=== PATIENT | female | born 2000 | race Caucasian/White ===

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

== ENCOUNTER 2025-05-06 16:44 | Observation (INO) | payer OTHER ==
[~2025-05-06 16:44] MED LIST: Iopamidol-370 76% 500 ML MDV (1 ML CHARGE) ONE
[2025-05-06 17:29] LABS: CAUTI Indications for Culture Dysuria,urgency,freq; Glucose, Urine (Dipstick) Normal (Negative); Leukocyte Negative Leu/uL (Negative); Protein, Urine (Dipstick) 20 mg/dL (Neg-Trace); RBC/HPF 0-3 HPF (0-3); Specific Gravity, Urine 1.031 (1.002-1.036); WBC/HPF 0-3 HPF (0-3)
[2025-05-06 17:33] LABS: Bacteria/HPF 1+ HPF (None Seen)
[2025-05-06 17:34] LABS: Urine Culture Reflex No No
[2025-05-06 17:55] LABS: #Basophils 0.05 10x3/uL (0.0-0.2); #Eosinophils 0.19 10x3/uL (0.0-0.7); #Monocytes 0.83 10x3/uL (0.11-0.59); #Neutrophils 8.48 10x3/uL (1.40-6.50); %Basophils 0.4 % (0.0-1.0); %Eosinophils 1.5 % (0.0-10.0); %Lymphocytes 26.4 % (21.0-51.0); %Monocytes 6.4 % (0.0-10.0); %Neutrophils 64.9 % (42.0-75.0); Hematocrit 41.7 % (36.0-47.0); Hemoglobin 13.7 g/dL (12.0-16.0); Mean Corpuscular Hemoglobin 28.7 pg (27.0-31.0); Mean Corpuscular Volume 87.2 fL (78.0-98.0); Platelet Count 292 10x3/uL (130-400); Red Blood Cell (RBC) Count 4.78 mill/uL (4.20-5.40); White Blood Cell (WBC) Count 13.04 10x3/uL (4.8-10.8)
[2025-05-06 18:16] LABS: ALT (SGPT) 11 U/L (Less than 34); AST (SGOT) 13 U/L (11-34); Albumin 4.4 g/dL (3.1-4.5); Alkaline Phosphatase 47 U/L (40-110); Anion Gap 14 mmol/L (10-20); BUN (Urea Nitrogen) 7 mg/dL (7.0-18.7); Bilirubin, Total 0.6 mg/dL (0.3-1.2); Calc. Creatinine Clearance 0 mL/min (70-130); Calcium 9.2 mg/dL (7.8-10.44); Carbon Dioxide 26 mmol/L (22-29); Chloride 104 mmol/L (98-107); Globulin 3.1 g/dL (2.4-3.5); Glucose 91 mg/dL (70-105); Lipase 15 U/L (8-78); Potassium 3.7 mmol/L (3.5-5.1); Sodium 140 mmol/L (136-145)
[2025-05-06 18:19] LABS: BHCG - Serum Negative (NEGATIVE); Pregs Control Background? CLEAR/WHITE (CLR/WHITE); Pregs Control Bar Appear? YES (CONTROL BAR)
[2025-05-06] MEDS ORDERED: Glucagon 1 MG/ML KIT IM PRN (19:55)
[2025-05-06] MEDS ORDERED: Acetaminophen 325 MG TAB PO PRN (19:55)
[2025-05-06] MEDS ORDERED: Dextrose 50% Abboject 50 ML SYRINGE SLOW IVP PRN (19:55)
[2025-05-06] MEDS ORDERED: Ondansetron PF 4 MG/2 ML Vial IVP PRN (19:55)
[2025-05-06] MEDS ORDERED: fentaNYL PF 100 MCG/2 ML SYRINGE ONE ×3 (20:22→22:20)
[2025-05-06] MEDS ORDERED: PROPOFOL 20 ML ONE (20:22)
[2025-05-06] MEDS ORDERED: Lidocaine 1% PF 5 ML VIAL ONE (20:23)
[2025-05-06] MEDS ORDERED: SUCCINYLCHOLINE/SOD CL,ISO/PF 200 MG/10 ML SYRINGE FS ONE (20:23)
[2025-05-06] MEDS ORDERED: Rocuronium Bromide 10 MG/ML (10ML VIAL) ONE (20:23)
[2025-05-06] MEDS ORDERED: Ondansetron PF 4 MG/2 ML Vial ONE ×3 (20:23→21:56)
[2025-05-06] MEDS ORDERED: Bupivacaine 0.25% HCL 30 ML VIAL ONE (20:26)
[2025-05-06] MEDS ORDERED: Meperidine HCl/PF 25 MG (1 mL) VIAL ONE (21:48)
[2025-05-07] MEDS: Ketorolac Tromethamine 30 MG (1 mL) VIAL IVP PRN (04:53)
[2025-05-07 05:12] VITALS: BMI 39.7
[2025-05-07 05:23] LABS: #Basophils Less than 0.03 10x3/uL (0.0-0.2); #Eosinophils Less than 0.03 10x3/uL (0.0-0.7); #Monocytes 0.18 10x3/uL (0.11-0.59); #Neutrophils 15.88 10x3/uL (1.40-6.50); %Basophils 0.1 % (0.0-1.0); %Eosinophils 0.0 % (0.0-10.0); %Lymphocytes 7.9 % (21.0-51.0); %Monocytes 1.0 % (0.0-10.0); %Neutrophils 90.7 % (42.0-75.0); Hematocrit 39.8 % (36.0-47.0); Hemoglobin 13.3 g/dL (12.0-16.0); Mean Corpuscular Hemoglobin 29.0 pg (27.0-31.0); Mean Corpuscular Volume 86.9 fL (78.0-98.0); Platelet Count 289 10x3/uL (130-400); Red Blood Cell (RBC) Count 4.58 mill/uL (4.20-5.40); White Blood Cell (WBC) Count 17.52 10x3/uL (4.8-10.8)
[2025-05-07 05:38] LABS: Anion Gap 16 mmol/L (10-20); BUN (Urea Nitrogen) 7 mg/dL (7.0-18.7); Calc. Creatinine Clearance 191 mL/min (70-130); Calcium 8.8 mg/dL (7.8-10.44); Carbon Dioxide 22 mmol/L (22-29); Chloride 105 mmol/L (98-107); Glucose 135 mg/dL (70-105); Potassium 4.1 mmol/L (3.5-5.1); Sodium 139 mmol/L (136-145)
[2025-05-07 11:58] LABS: Bacteria/HPF None Seen HPF (None Seen); CAUTI Indications for Culture Dysuria,urgency,freq; Glucose, Urine (Dipstick) Normal (Negative); Leukocyte Negative Leu/uL (Negative); Protein, Urine (Dipstick) Negative (Neg-Trace); RBC/HPF 0-3 HPF (0-3); Specific Gravity, Urine 1.015 (1.002-1.036); WBC/HPF 0-3 HPF (0-3)
[2025-05-07 12:00] LABS: Urine Culture Reflex No No
[2025-05-07 12:08] VITALS: BP 110/67; TEMP 97.6
== END 2025-05-07 14:00 | disposition home or self-care (01) ==
LOC: ERS 16:44 → SDC/OP 20:55 → SURG B 23:19
PROVIDERS: ADMIT Colon & Rectal Surgery; ATTEND Colon & Rectal Surgery
PROC: 0DTJ4ZZ Resection of Appendix, Percutaneous Endoscopic Approach (ICD-10-PCS; principal; 2025-05-06)
DX: K35.80 Unspecified acute appendicitis (principal); E03.9 Hypothyroidism, unspecified; F17.200 Nicotine dependence, unspecified, uncomplicated; Z79.890 Hormone replacement therapy
CPT/HCPCS: 36415; 74177; 80048; 80053; 81001; 83690; 84703; 85025; 88304; 96374; 96375; A4649; J0169; J0665; J1100; J1885; J2175; J2250; J2270; J2405; J2543; J2704; J3010; J7030; Q9967